=== PATIENT | female | born 1980 | race Caucasian/White ===

== ENCOUNTER 2023-10-25 09:55 | Day surgery (SDC) | payer OTHER ==
[~2023-10-25] VITALS: Ht 165.1 cm; Wt 89.9 kg
[2023-10-25] MEDS ORDERED: LIDOCAINE 2%, 20 ML MDV ONE (10:00)
[2023-10-25 10:44] LABS: HCG,QUAL RESULT NEGATIVE (NEGATIVE)
[2023-10-25] MEDS ORDERED: fentaNYL CITRATE/PF 100 MCG/2 ML AMP ONE (11:19)
[2023-10-25] MEDS ORDERED: MIDAZOLAM HCL 5 MG/5 ML VIAL ONE (11:19)
[2023-10-25] MEDS: MIDAZOLAM HCL 5 MG/5 ML VIAL IVP ONE (11:33)
[2023-10-25 13:36] VITALS: O2SAT 99
[2023-10-25 15:46] VITALS: BP_SYST 150; PULSE 75; RESP 22
== END 2023-10-25 12:25 | disposition home or self-care (01) ==
LOC: SDS 09:55 → SMU 09:56 → SDS 12:25
PROVIDERS: ATTEND Internal Medicine
DX: M54.16 Radiculopathy, lumbar region (principal); I10 Essential (primary) hypertension; G89.29 Other chronic pain; K21.9 Gastro-esophageal reflux disease without esophagitis; M06.9 Rheumatoid arthritis, unspecified; Z87.891 Personal history of nicotine dependence; Z88.5 Allergy status to narcotic agent; Z98.891 History of uterine scar from previous surgery; Z90.89 Acquired absence of other organs
CPT/HCPCS: 62323; 84703; J2250; Q9967; J1010; 76000; J1030; J2001; J3010